=== PATIENT | female | born 1935 | race Caucasian/White ===

== ENCOUNTER 2016-11-07 10:06 | Day surgery (SDC) | payer OTHER, MEDICARE ==
[2016-10-26 14:15] VITALS: BMI 24.0
--- NOTE | 2016-10-26 14:50 | PAT Medication Instructions ---
Service Date Oct 26, 2016. Current Home Medication List Krill Oil (Megared Bethel-3 Krill Oil 500 mg), 1 TAB PO QAM Levothyroxine Sodium (Synthroid), 25 MG PO QAM Lisinopril (Prinivil), 5 MG PO QAM Meloxicam (Mobic), 7.5 MG PO QAM Multivitamins/Minerals (Mvi With Minerals), 1 TAB PO QAM Omeprazole (Prilosec), 20 MG PO QAM Medication Instructions For Your Scheduled Surgery - Check with surgeon for instructions: Meloxicam (Mobic), 7.5 MG PO QAM - Hold the following medications starting 10/27/2016: Krill Oil (Megared Bethel-3 Krill Oil 500 mg), 1 TAB PO QAM - Hold the following medications the morning of surgery: Multivitamins/Minerals (Mvi With Minerals), 1 TAB PO QAM Lisinopril (Prinivil), 5 MG PO QAM - Take the following medications the morning of surgery with a sip of water: Levothyroxine Sodium (Synthroid), 25 MG PO QAM Omeprazole (Prilosec), 20 MG PO QAM If you have any questions please call us at [phone] (Kaitlin Gardner PA-C) or [phone] or [phone]
[~2016-11-07] VITALS: Ht 157.5 cm; Wt 61.6 kg
[~2016-11-07 10:06] MED LIST: CLINDAMYCIN 600 MG/54 ML D5W IV SCH; KRIL1CAP18 PO; LACTATED RINGER'S 1000ML 1,000 ML IV SCH; LEVO25TA PO; LISI-729 PO; MELO7.5T5 PO; MULT-513 PO; PRLSR20 PO
[2016-11-07 10:36] VITALS: BP 172/71; PULSE 76; TEMP 36.7; O2SAT 94; Ht 157.5 cm; Wt 61.6 kg
[2016-11-07] MEDS ORDERED: FENTANYL CITRATE INJ 50 MCG/1 ML 2 ML VIAL ONE (10:51)
[2016-11-07] MEDS ORDERED: MIDAZOLAM HCL 1 MG/ML 2ML VIAL ONE (10:51)
--- NOTE | 2016-11-07 12:31 | History & Physical Bridge Note ---
H&P Re-Evaluation Bridge Note: I have examined the patient, reviewed the History & Physical and in the interval since the performance of the History & Physical I have noted the following changes of clinical significance: No changes noted
[2016-11-07] MEDS ORDERED: PHENYLEPHRINE HCL INJ 10 MG/ML VIAL ONE (13:01)
[2016-11-07] MEDS ORDERED: PROPOFOL IV EMULSION 10 MG/ML 20 ML VIAL IV ONE (13:01)
[2016-11-07] MEDS ORDERED: LIDOCAINE HCL 2% 2 ML VIAL (20MG/ML) ONE (13:01)
[2016-11-07] MEDS ORDERED: ONDANSETRON INJ 2 MG/ML 2 ML VIAL ONE (13:01)
[2016-11-07] MEDS ORDERED: DEXAMETHASONE SOD INJ 4 MG/ML VIAL ONE (13:01)
[2016-11-07] MEDS ORDERED: ATROPINE SULFATE 0.1 MG/ML 5ML SYR IV PRN (13:30)
[2016-11-07] MEDS ORDERED: ONDANSETRON INJ 2 MG/ML 2 ML VIAL IV PRN ×2 (13:30→14:15)
[2016-11-07] MEDS ORDERED: EpHEDrine SULFATE INJ 50 MG/ML AMP IV PRN (13:30)
[2016-11-07] MEDS ORDERED: FENTANYL CITRATE INJ 50 MCG/1 ML 2 ML VIAL IV PRN (13:30)
[2016-11-07] MEDS ORDERED: BUPIVACAINE 0.5 % 5 MG/1 ML MPF 30ML VIAL INJ ONE (13:51)
--- NOTE | 2016-11-07 14:06 | [facility] Post Operative Brief Note ---
Immediate Operative Summary Operative Date Nov 07, 2016. Pre-Operative Diagnosis Left Inguinal Hernia Post-Operative Diagnosis Left Inguinal Hernia Procedure(s) Performed Left Inguinal Hernia Repair with Mesh Surgeon Dr. Raffi Barcenas Airline Mechanic Surgeon(s) none Estimated Blood Loss 5mL Findings See dictation Specimens A: Left Inguinal Hernia Sac Drains None Anesthesia General Complication(s) None Disposition Recovery Room / PACU
[2016-11-07] MEDS ORDERED: SODIUM CHLORIDE 0.9% 1000ML 1,000 ML IV SCH (14:07)
--- NOTE | 2016-11-07 14:09 | Discharge Instructions ---
Discharge Instructions Admission Reason for Admission: Left Inguinal Hernia Discharge Discharge Diagnosis / Problem: Same Discharge Goals Goal(s): Decrease discomfort Activity Recommendations Activity Limitations: per Instructions/Follow-up section Lifting Limitations: no more than 10 pounds Shower/Bathe: tomorrow (Shower only) . Instructions / Follow-Up Instructions / Follow-Up ACTIVITY RECOMMENDATIONS: * Walk as much as possible. * No heavy lifting (>10 lbs.) for 2 weeks. SPECIAL CARE INSTRUCTIONS: * Ice to hernia repair site on and off until bedtime tonight. * May shower in 24 hours. Let water run over area and pat dry. * Leave steri strips on for one week. * Call the surgeon's office with any questions or concerns - (ex. temperature higher than 101 degrees F, excessive bleeding or pain). MEDICATIONS: Resume previous medications unless instructed otherwise by your surgeon. * Ibuprofen 600 mg every 6 hours with food * Percocet 1 every 4 hours, as needed for pain FOLLOW UP VISIT: If not already scheduled, please call the office to schedule a two week follow- up appointment. Office number Current Hospital Diet Patient's current hospital diet: Discharge Diet Recommended Diet: Regular Diet Procedures Procedures Performed: Left Inguinal Hernia Repair with Mesh Pending Studies Studies pending at discharge: no Medical Emergencies . Who to Call and When: Medical Emergencies: If at any time you feel your situation is an emergency, please call 911 immediately. . Non-Emergent Contact Non-Emergency issues call your: Primary Care Provider, Surgeon Call Non-Emergent contact if: your pain is worsening, wound has increased redness, wound has increased pain . "Provider Documentation" section prepared by Raffi Barcenas. VTE Core Measure Inpt VTE Proph given/why not?: Treatment not indicated
[2016-11-07] MEDS ORDERED: OXYCODONE/ACETAMINOPHEN 5-325 TAB PO PRN (14:15)
[2016-11-07] MEDS ORDERED: MoRPHine SULFATE 4 MG/ML 1 ML CARP\\VIAL IV PRN (14:15)
--- NOTE | 2016-11-07 14:31 | Anesthesiology Progress Note ---
Anesthesia Post Op Note Date & Time Nov 07, 2016 at 14:30 Vital Signs Pain Intensity: 5.0 Vital Signs Past 12 Hours Date Time Temp Pulse Resp B/P Pulse Ox O2 Delivery O2 Flow Rate FiO2 11/07/16 14:20 62 20 154/96 100 Mask 10 11/07/16 14:10 59 16 150/88 100 Mask 10 11/07/16 14:03 37.2 56 15 148/85 100 Mask 10 11/07/16 10:36 36.7 76 18 172/71 94 Room Air Notes Mental Status: alert / awake / arousable, participated in evaluation Pt Amnestic to Procedure: Yes Nausea / Vomiting: adequately controlled Pain: adequately controlled Airway Patency, RR, SpO2: stable & adequate BP & HR: stable & adequate Hydration State: stable & adequate Anesthetic Complications: no major complications apparent
[2016-11-07 14:50] VITALS: BP 138/83; PULSE 69; TEMP 36.4; O2SAT 98
--- NOTE | 2016-11-07 15:42 | OPERATIVE REPORT ---
DATE OF OPERATION: 11/07/2016 PREOPERATIVE DIAGNOSIS: Left inguinal hernia. POSTOPERATIVE DIAGNOSIS: Left indirect inguinal hernia. PROCEDURE: Repair of left indirect inguinal hernia with mesh. SURGEON: Dr. Barcenas. FINDINGS: The patient had an indirect hernia. There was no direct component. There were no other defects noted. TECHNIQUE: The patient was given a general anesthetic and the area was prepped and draped in the usual sterile fashion. Left inguinal incision was made, carried down through the subcutaneous tissue. There was 1 bridging vessel that was doubly clamped, divided and ligated with 4-0 Vicryl ties. Further dissection was carried posteriorly until the external oblique and external ring could be identified. An incision was made in the external oblique. The underlying structures were off its undersurface and it was opened through the external ring. The indirect hernia sac was easily identified. It was away from the round ligament, away from the floor of the canal using blunt cautery and sharp dissection where appropriate. This was carried up to just inside the internal ring. The hernia sac was opened and high ligation was performed. The redundant sac was removed and the opening was closed with a running 2-0 Vicryl with a V-Loc stitch. It was placed back into its anatomic position. The round ligament was clamped proximally and distally and removed. Each end was ligated with a 3-0 Vicryl tie. The ilioinguinal nerve was also resected. A piece of mesh was placed on the floor of the canal and sewn to the anterior surface of the internal oblique medially, tissue over the pubic bone laterally and to the shelving border of the inguinal ligament laterally. The mesh suturing was done with 0 PDS. The external oblique was closed over using a running 2-0 Vicryl. The deep subcutaneous tissue was closed with running 2-0 Vicryl. The superficial subcutaneous tissue was closed with running 3-0 Vicryl and skin was closed with 4-0 Monocryl in a running subcuticular fashion. The skin was anesthetized with 0.5% Marcaine and an ilioinguinal block was created with that same local. The estimated blood loss was 5 mL. Sponge, needle and instrument counts were correct prior to closure. The skin was cleansed, dried, benzoin placed, Steri-Strips applied. I attest to the content of the Intraoperative Record and any orders documented therein. Any exceptio ns are noted below.
== END 2016-11-07 16:11 | disposition home or self-care (01) ==
LOC: C.ACU 10:06
PROVIDERS: ATTEND Surgery
DX: K40.90 Unilateral inguinal hernia, without obstruction or gangrene, not specified as recurrent (principal); I10 Essential (primary) hypertension; K21.9 Gastro-esophageal reflux disease without esophagitis; E78.5 Hyperlipidemia, unspecified; E03.9 Hypothyroidism, unspecified; M19.90 Unspecified osteoarthritis, unspecified site; Z90.710 Acquired absence of both cervix and uterus; Z90.49 Acquired absence of other specified parts of digestive tract; Z98.890 Other specified postprocedural states; Z88.0 Allergy status to penicillin; Z68.24 Body mass index [BMI] 24.0-24.9, adult